=== PATIENT | male | born 1950 | race Caucasian/White ===

== ENCOUNTER 2019-04-01 18:26 | Emergency (ER) | payer MEDICARE, MEDICAID ==
--- NOTE | 2019-04-01 19:35 | ED ---
Back Pain - HPI Summary HPI Summary: This patient is a 68 year old male presenting to [facility] from [facility] with a chief complaint of rib pain. The patient has chronic bilateral rib pain and it is currently exacerbated. He states a few years ago he had a back injury and the ribs hurt him sometimes. the patient uses an amplifier to hear and the [facility] thought he was confused when he mistook his hearing device for the remote and sent him here. The patient is at home oxygen and his rib pain also caused him dyspnea. The patient currently has Fx vertebrae. He rates his pain 6/ 10 in severity. - History of Current Complaint Chief Complaint: EDBackInjuryPain Stated Complaint: PAIN PER EMS Time Seen by Provider: 04/01/19 19:26 Hx Obtained From: Patient Onset/Duration: Lasting Hours, Still Present Severity Currently: Moderate Pain Intensity: 6 Pain Scale Used: 0-10 Numeric - Allergies/Home Medications Allergies/Adverse Reactions: Allergies Allergy/AdvReac Type Severity Reaction Status Date / Time No Known Allergies Allergy Verified 03/22/19 22:11 Home Medications: Home Medications Baclofen 20 mg PO DAILY 04/01/19 [History Confirmed 04/01/19] Diltiazem HCl 30 mg PO DAILY 04/01/19 [History Confirmed 04/01/19] Fluticasone-Salmeterol 500-50 1 puff INH BID 04/01/19 [History Confirmed ] Hydrochlorothiazide 25 mg PO DAILY 04/01/19 [History Confirmed 04/01/19] Ipratropium HFA INHALER(NF) 2 puff INH QID 04/01/19 [History Confirmed 04/01/19] Levothyroxine Sodium 100 mcg PO DAILY 04/01/19 [History Confirmed 04/01/19] Lisinopril 10 mg PO DAILY 04/01/19 [History Confirmed 04/01/19] Nicotine Patch 1 dose TRANSDERM DAILY 04/01/19 [History Confirmed 04/01/19] Umeclidinium 62.5 MDI(NF) 1 puff INH DAILY 04/01/19 [History Confirmed 04/01/19] predniSONE 10 mg PO DAILY 04/01/19 [History Confirmed 04/01/19] PMH/Surg Hx/FS Hx/Imm Hx Cardiovascular History: Reports: Hx Hypotension Respiratory History: Reports: Hx Chronic Obstructive Pulmonary Disease (COPD) Infectious Disease History: No Infectious Disease History: Denies: Traveled Outside the [place] in Last 30 Days - Family History Known Family History: Positive: Respiratory Disease Negative: Diabetes - Social History Alcohol Use: None Substance Use Type: Reports: None Hx Tobacco Use: Yes Smoking Status (MU): Former Smoker Review of Systems Positive: Shortness Of Breath - Dyspnea Positive: Other - Rib pain Neurological: Other - Potential altered mental status All Other Systems Reviewed And Are Negative: Yes Physical Exam - Summary Physical Exam Summary: VITAL SIGNS: Reviewed. GENERAL: Patient is a well-developed and nourished MALE who is lying comfortable in the stretcher. Patient is not in any acute respiratory distress. HEAD AND FACE: No signs of trauma. No ecchymosis, hematomas or skull depressions. No sinus tenderness. EYES: PERRLA, EOMI x 2, No injected conjunctiva, no nystagmus. EARS: Hearing grossly intact. Ear canals and tympanic membranes are within normal limits. MOUTH: Oropharynx within normal limits. NECK: Supple, trachea is midline, no adenopathy, no JVD, no carotid bruit, no c- spine tenderness, neck with full ROM CHEST: Symmetric, tenderness at left chest wall. LUNGS: Clear to auscultation bilaterally. No wheezing or crackles. Decreased breath sounds bilaterally. CVS: Regular rate and rhythm, S1 and S2 present, no murmurs or gallops appreciated. ABDOMEN: Soft, non-tender. No signs of distention. No rebound no guarding, and no masses palpated. Bowel sounds are normal. EXTREMITIES: FROM in all major joints, bilateral lower extremity edema., no cyanosis or clubbing. NEURO: Alert and oriented x 3. No acute neurological deficits. Speech is normal and follows commands. SKIN: Dry and warm Triage Information Reviewed: Yes Vital Signs On Initial Exam: Initial Vitals Temp Pulse Resp BP Pulse Ox 98.6 F 95 18 118/77 95 04/01/19 18:42 04/01/19 18:42 04/01/19 18:42 04/01/19 18:42 04/01/19 18:42 Vital Signs Reviewed: Yes Diagnostics - Vital Signs Vital Signs Temp Pulse Resp BP Pulse Ox 04/01/19 18:42 98.6 F 95 18 118/77 95 - Laboratory Result Diagrams: 04/01/19 20:10 04/01/19 20:10 Lab Statement: Any lab studies that have been ordered have been reviewed, and results considered in the medical decision making process. - CT Chest CT Interpretation Completed By: Radiologist Summary of CT Findings: 1. No pulmonary emboli. 2. Fusiform aneurysm descending thoracic aorta. No dissection or rupture. 3. Moderate severe emphysema. 4. Bosniak type I renal cyst. No follow up indicated. ED Provider has reviewed this report. Back Pain Course/Dx - Course Course Of Treatment: This patient is a 68 year old male presenting to [facility] from [facility] with a chief complaint of rib pain. Chest CT was unremarkable. The patient will be discharged with a Dx of chest wall pain. This plan was discussed with the patient and he was agreeable with this plan. - Diagnoses Provider Diagnoses: Chest wall pain Discharge - Sign-Out/Discharge Documenting (check all that apply): Patient Departure - Discharge Patient Received Moderate/Deep Sedation with Procedure: No - Discharge Plan Condition: Stable Disposition: [facility] Prescriptions: oxyCODONE/Acetamin 5/325 MG* [Percocet 5/325 TAB*] 1 tab PO Q6H PRN #20 tab MDD 4 PRN Reason: Pain Referrals: Sathish STAPLETON,Tomy Brito [Primary Care Provider] - Additional Instructions: Return to ED with any new or worsening symptoms. - Attestation Statements Document Initiated by Scribe: Yes Documenting Scribe: Tomy Bertrand Provider For Whom Gema is Documenting (Include Credential): Jerod Dallas MD Scribe Attestation: Tomy So, scribed for Jerod Dallas MD on 04/01/19 at 2230. Status of Scribe Document: Ready
[2019-04-01] MEDS ORDERED: Morphine 4 MG/ML VIAL (1 ml) 4 MG/ML VIAL IV ONE (19:39)
[2019-04-01] MEDS ORDERED: Ondansetron INJ* 2 MG/ML VIAL IV ONE (19:39)
[2019-04-01 20:18] LABS: ABS Basophils 0.1 10^3/ul (0-0.2); ABS Eosinophils 0.1 10^3/ul (0-0.6); ABS Lymphocytes 1.1 10^3/ul (1.0-4.8); ABS Monocytes 0.6 10^3/ul (0-0.8); ABS Neutrophils 4.4 10^3/ul (1.5-7.7); Eosinophil % 1.3 %; Hematocrit 35 % (42-52); Hemoglobin 11.9 g/dL (14.0-18.0); Lymphocyte % 17.4 %; Mean Corpuscular HGB Conc 34 g/dL (31-36); Mean Corpuscular Hemoglobin 35 pg (27-31); Mean Corpuscular Volume 104 fL (80-94); Mean Platelet Volume 6.8 fL (7.4-10.4); Nucleated Red Blood Cells % 0.1; Platelet Count 258 10^3/uL (150-450); Red Blood Count 3.36 10^6 /uL (4.18-5.48); Red Cell Distribution Width 12 % (10.5-15); White Blood Count 6.2 10^3/uL (3.5-10.8)
[2019-04-01 20:26] LABS: Activated Partial Thrombo Time 30.9 seconds (26.0-36.3); INR 0.97 (0.82-1.09)
[2019-04-01 20:34] LABS: Albumin 3.8 g/dL (3.2-5.2); Albumin/Globulin Ratio 1.8 (1-3); Calcium 9.3 mg/dL (8.6-10.3); EGFR African American 201.3 (>60); EGFR Non-African American 166.4 (>60); Globulin 2.1 g/dL (2-4); Potassium 3.9 mmol/L (3.5-5.0); Total Bilirubin 0.6 mg/dL (0.2-1.0); Total Protein 5.9 g/dL (6.4-8.9)
[2019-04-01] MEDS ORDERED: Iohexol 350* (CONTRAST) 500 ML MDV IV ONE (20:55)
[2019-04-01 23:37] VITALS: BP 128/76
== END 2019-04-01 23:30 ==
LOC: ED 18:26
DX: R07.89 Other chest pain (principal); I71.2 Thoracic aortic aneurysm, without rupture; N28.1 Cyst of kidney, acquired; I95.9 Hypotension, unspecified; J44.9 Chronic obstructive pulmonary disease, unspecified; Z99.81 Dependence on supplemental oxygen; Z87.891 Personal history of nicotine dependence
CPT/HCPCS: 36415; 71275; 80053; 85025; 85610; 85730; 96374; 96375; 99283; J2270; J2405; Q9967